=== PATIENT | male | born 1990 | race African-American/Black ===

== ENCOUNTER 2018-11-06 18:36 | Emergency (ER) | payer SELFPAY ==
[~2018-11-06] VITALS: Ht 170.2 cm; Wt 72.6 kg
[~2018-11-06 18:36] MED LIST: CYCL10TA2 PO
[2018-11-06 18:40] VITALS: BP 144/83
--- NOTE | 2018-11-06 18:52 | PHYS DOC ---
Past Medical History Past Medical History: No Pertinent History (FERDINAND MCALLISTER) Past Surgical History: No Surgical History (FERDINAND MCALLISTER) Alcohol Use: Occasionally Drug Use: Marijuana (FERDINAND MCALLISTER) Adult General Chief Complaint Chief Complaint: ABDOMINAL PAIN HPI HPI Patient is a 28 year old male presents to the ED complaining of dysuria 3 days ago. Patient states that he had sexual intercourse/a one nightstand 2 weeks ago and and is concerned he might have an STD. States he does have some mild penile discharge. Describes the pain as burning. Rates the pain as 6/10. Denies hematuria, abdominal pain, flank pain, headache, dysuria swelling, lesions to genitals, chest pain, or shortness of breath. (FERDINAND MCALLISTER) Review of Systems Review of Systems Constitutional: Denies fever or chills [] Eyes: Denies change in visual acuity, redness, or eye pain [] HENT: Denies nasal congestion or sore throat [] Respiratory: Denies cough or shortness of breath [] Cardiovascular: No additional information not addressed in HPI [] GI: Denies abdominal pain, nausea, vomiting, bloody stools or diarrhea [] : Complains of dysuria and penile discharge. Denies hematuria [] Musculoskeletal: Denies back pain or joint pain [] Integument: Denies rash or skin lesions [] Neurologic: Denies headache, focal weakness or sensory changes [] All other systems were reviewed and found to be within normal limits, except as documented in this note. (FERDINAND MCALLISTER) Current Medications Current Medications Current Medications Medications (Trade) Dose Ordered Sig/Lizbeth Start Time Stop Time Status Last Admin Dose Admin Azithromycin (Zithromax) 1,000 mg 1X ONCE 11/06/18 19:00 11/06/18 19:01 DC 11/06/18 19:06 1,000 MG Ceftriaxone Sodium (Rocephin Im) 250 mg 1X ONCE 11/06/18 19:00 11/06/18 19:01 DC 11/06/18 19:10 250 MG (BEN TAPIA MD) Allergies Allergies Allergies Coded Allergies Type Severity Reaction Last Updated Verified No Known Drug Allergies 09/16/14 No (BEN TAPIA MD) Physical Exam Physical Exam Constitutional: Well developed, well nourished, no acute distress, non-toxic appearance. [] HENT: Normocephalic, atraumatic Cardiovascular:Heart rate regular rhythm, no murmur [] Lungs & Thorax: Bilateral breath sounds clear to auscultation [] Abdomen: Bowel sounds normal, soft, no tenderness, no masses, no pulsatile masses. [] Skin: Warm, dry, no erythema, no rash. [] Back: No tenderness, no CVA tenderness. [] Neurologic: Alert and oriented X 3, normal motor function, normal sensory function, no focal deficits noted. [] Psychologic: Affect normal, judgement normal, mood normal. [] (FERDINAND MCALLISTER) Current Patient Data Vital Signs Vital Signs Date Time Temp Pulse Resp B/P (MAP) Pulse Ox O2 Delivery O2 Flow Rate FiO2 11/06/18 18:40 97.5 94 18 144/83 (103) 100 Room Air 97.5 (BEN TAPIA MD) Lab Values Laboratory Tests Test 11/06/18 19:05 Urine Collection Type Unknown Urine Color Yellow Urine Clarity Clear Urine pH 7.0 Urine Specific Martin 1.025 Urine Protein Negative mg/dL (NEG-TRACE) Urine Glucose (UA) Negative mg/dL (NEG) Urine Ketones (Stick) Trace mg/dL (NEG) Urine Blood Negative (NEG) Urine Nitrite Negative (NEG) Urine Bilirubin Negative (NEG) Urine Urobilinogen Dipstick 1.0 mg/dL (0.2 mg/dL) Urine Leukocyte Esterase Negative (NEG) Urine RBC 0 /HPF (0-2) Urine WBC 0 /HPF (0-4) Urine Squamous Epithelial Cells None /LPF Urine Bacteria 0 /HPF (0-FEW) Urine Mucus Slight /LPF (BEN TAPIA MD) Lab Values Laboratory Tests Test 11/06/18 19:05 Urine Collection Type Unknown Urine Color Yellow Urine Clarity Clear Urine pH 7.0 Urine Specific Martin 1.025 Urine Protein Negative mg/dL (NEG-TRACE) Urine Glucose (UA) Negative mg/dL (NEG) Urine Ketones (Stick) Trace mg/dL (NEG) Urine Blood Negative (NEG) Urine Nitrite Negative (NEG) Urine Bilirubin Negative (NEG) Urine Urobilinogen Dipstick 1.0 mg/dL (0.2 mg/dL) Urine Leukocyte Esterase Negative (NEG) Urine RBC 0 /HPF (0-2) Urine WBC 0 /HPF (0-4) Urine Squamous Epithelial Cells None /LPF Urine Bacteria 0 /HPF (0-FEW) Urine Mucus Slight /LPF (FERDINAND MCALLISTER) EKG EKG [] (FERDINAND MCALLISTER) Radiology/Procedures Radiology/Procedures [] (FERDINAND MCALLISTER) Course & Med Decision Making Course & Med Decision Making Pertinent Labs and Imaging studies reviewed. (See chart for details) Discussed lab findings with patient. Will treat with Rocephin and azithromycin in the ED. Discussed safe sex practice and no sexual activity for 10 days. Discussed making partners aware. Discussed follow-up testing and reasons to return to the ED. Patient understands and agrees with plan. (FERDINAND MCALLISTER) Course & Med Decision Making Assessment Staff Physician Addendum: I was working in the ER during the course of this patient's visit. I was available for consultation as needed, but I was not directly involved in the care of this patient. (BEN TAPIA MD) Dragon Disclaimer Dragon Disclaimer This electronic medical record was generated, in whole or in part, using a voice recognition dictation system. (FERDINAND MCALLISTER) Departure Departure Impression: Primary Impression: STD (sexually transmitted disease) Disposition: 01 HOME, SELF-CARE Condition: STABLE Referrals: NO PCP (PCP) BONNY AMBROCIO MD Patient Instructions: Sexually Transmitted Disease FERDINAND MCALLISTER Nov 06, 2018 18:52 BEN TAPIA MD Nov 08, 2018 05:28
[2018-11-06] MEDS ORDERED: cefTRIAXone IM 250 MG VIAL IM ONE (19:00)
[2018-11-06] MEDS ORDERED: AZITHROMYCIN 250 MG TABLET. PO ONE (19:00)
[2018-11-06 19:24] LABS: BILIRUBIN,URINE NEGATIVE (NEG); CLARITY,URINE CLEAR; COLOR,URINE YELLOW; NITRITE,URINE NEGATIVE (NEG); PROTEIN,URINE NEGATIVE (NEG-TRACE)
[2018-11-06 19:29] LABS: BACTERIA,URINE 0 /HPF (0-FEW); RBC,URINE 0 /HPF (0-2); WBC,URINE 0 /HPF (0-4)
== END 2018-11-06 19:52 | disposition home or self-care (01) ==
LOC: ER 18:36
DX: A64 Unspecified sexually transmitted disease (principal)
CPT/HCPCS: 81001; 96372; 99283; J0696; Q0144; 87491; 87591